=== PATIENT | male | born 1975 | race Hispanic/Latino ===

== ENCOUNTER 2017-12-20 13:53 | Emergency (ER) | payer SELFPAY | END 2017-12-20 14:38 | disposition home or self-care (01) | LOC: ERS 13:53 | DX: K04.7 Periapical abscess without sinus (principal); I10 Essential (primary) hypertension | CPT/HCPCS: 99282 ==

== ENCOUNTER 2018-03-24 08:02 | Observation (INO) | payer BC, SELFPAY ==
[2018-03-24] MEDS ORDERED: Nitroglycerin 2% Ointment 1 INCH/1 GM Packet ONE (08:28)
[2018-03-24] MEDS ORDERED: Nitroglycerin 0.4 MG TAB (25 Tab Bottle) ONE (08:28)
[2018-03-24 08:39] LABS: #Basophils 0.1 thou/uL (0.0-0.2); #Eosinphils 0.1 thou/uL (0.0-0.7); #Lymphocytes 3.7 thou/uL (1.20-3.40); #Monocytes 0.6 thou/uL (0.11-0.59); #Neutrophils 4.9 thou/uL (1.40-6.50); %Basophils 1.1 % (0.0-1.0); %Eosinophils 1.3 % (0.0-10.0); %Lymphocytes 38.9 % (21.0-51.0); %Monocytes 6.5 % (0.0-10.0); %Neutrophils 52.3 % (42.0-75.0); Hemoglobin 17.3 g/dL (14.0-18.0); Mean Corpuscular HGB CONC 35.5 g/dL (32.0-36.0); Mean Corpuscular Hemoglobin 33.2 pg (27.0-31.0); Mean Corpuscular Volume 93.4 fL (78.0-98.0); Mean Platelet Volume 8.9 fL (7.4-10.4); Platelet Count 197 thou/uL (130-400); RBC Distribution Width 11.9 % (11.5-14.5); Red Blood Cell (RBC) Count 5.21 mill/uL (4.70-6.10); White Blood Cell (WBC) Count 9.4 thou/uL (4.8-10.8)
--- NOTE | 2018-03-24 08:54 | RAD ---
SINGLE VIEW OF THE CHEST: History: Intermittent chest pain. Comparison: 12-30-06 FINDINGS: Single view of the chest shows a normal sized cardiomediastinal silhouette. There is no evidence of c onsolidation, mass, or pleural effusion. The bones are unremarkable. IMPRESSION: No evidence of acute cardiopulmonary disease. POS: [facility]
[2018-03-24 08:56] LABS: ALT (SGPT) 41 U/L (8-55); AST (SGOT) 26 U/L (5-34); Alkaline Phosphatase 93 U/L (40-150); Anion Gap 19 mmol/L (10-20); BUN (Urea Nitrogen) 17 mg/dL (8.9-20.6); Bilirubin, Total 0.8 mg/dL (0.2-1.2); Calc. Creatinine Clearance 0 mL/min (70-130); Calcium 10.2 mg/dL (7.8-10.44); Carbon Dioxide 20 mmol/L (22-29); Chloride 100 mmol/L (98-107); Estimated GFR-MDRD 58; Globulin 3.9 g/dL (2.4-3.5); Glucose 110 mg/dL (70-105); Protein, Total 8.9 g/dL (6.0-8.3); Sodium 136 mmol/L (136-145)
[2018-03-24 09:00] LABS: Potassium 2.9 mmol/L (3.5-5.1)
--- NOTE | 2018-03-24 11:54 | PDOC.FPRHP ---
- History of Present Illness Chief Complaint: chest pain History of Present Illness: Mr. Cooper presents to the ED with chest pain He reports that for the last two days he has had intermittent chest pain that he describes as sharp and localized in his left chest. He reports it is present at rest and not made worse with activity. he denies any RUELAS, palpitations, SOB, syncope, headache, or diaphoresis. He has not had similar chest pain in the past. He has no heart history, has been taking his medications as prescribed. 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 ED Course: CBC, CMP, Trop, trop, CXR, EKG nitro, asa - History PMHx: HTN PSHx: none FHx: DMII, CAD, HTN Social: social smoking and drinking, no drugs - Review of Systems General: denies: fever/chills, weight/appetite/sleep changes Eyes: denies: eye pain, vision changes Respiratory: denies: cough, shortness of breath, exercise intolerance Cardiovascular: reports: chest pain. denies: palpitation, edema, orthopnea Gastrointestinal: denies: nausea, vomiting, diarrhea Skin: denies: rashes, lesions Musculoskeletal: denies: pain, tenderness Neurological: denies: syncope, weakness - Vital signs BP: 130/96 HR: 76 RR: 16 Tmax: 99 Pox: 97% on RA Wt: 104.3kg - Physical Exam Constitutional: NAD, awake, alert and oriented HEENT: normocephalic and atraumatic, grossly normal vision, grossly normal hearing Neck: supple, trachea midline Chest: no-tender to palpation, no lesions Heart: RRR, normal S1/S2, no murmurs/rubs/gallops, pulses present, no edema Lungs: CTAB, no respiratory distress, good air movement Abdomen: soft, non-tender, bowel sounds present Musculoskeletal: normal structure, ROM grossly normal Neurological: no focal deficit Skin: no rash/lesions, good turgor Heme/Lymphatic: no unusual bruising or bleeding Psychiatric: normal mood and affect FMR H&P: Results - Labs Result Diagrams: 03/24/18 08:21 03/24/18 08:21 Lab results: WBC 9.4 thou/uL (4.8-10.8) 03/24/18 08:21 Hgb 17.3 g/dL (14.0-18.0) 03/24/18 08:21 Hct 48.6 % (42.0-52.0) 03/24/18 08:21 MCV 93.4 fL (78.0-98.0) 03/24/18 08:21 Plt Count 197 thou/uL (130-400) 03/24/18 08:21 Neutrophils % 52.3 % (42.0-75.0) 03/24/18 08:21 Sodium 136 mmol/L (136-145) 03/24/18 08:21 Potassium 2.9 mmol/L (3.5-5.1) L* 03/24/18 08:21 Chloride 100 mmol/L (98-107) 03/24/18 08:21 Carbon Dioxide 20 mmol/L (22-29) L 03/24/18 08:21 BUN 17 mg/dL (8.9-20.6) 03/24/18 08:21 Creatinine 1.35 mg/dL (0.7-1.3) H 03/24/18 08:21 Glucose 110 mg/dL (70-105) H 03/24/18 08:21 Calcium 10.2 mg/dL (7.8-10.44) 03/24/18 08:21 Total Bilirubin 0.8 mg/dL (0.2-1.2) 03/24/18 08:21 AST 26 U/L (5-34) 03/24/18 08:21 ALT 41 U/L (8-55) 03/24/18 08:21 Alkaline Phosphatase 93 U/L (40-150) 03/24/18 08:21 Serum Total Protein 8.9 g/dL (6.0-8.3) H 03/24/18 08:21 Albumin 5.0 g/dL (3.5-5.0) 03/24/18 08:21 FMR H&P: A/P - Problem List (1) Atypical chest pain Status: Acute Code(s): R07.89 - OTHER CHEST PAIN (2) Hypokalemia Status: Acute Code(s): E87.6 - HYPOKALEMIA (3) HTN (hypertension) Status: Acute Code(s): I10 - ESSENTIAL (PRIMARY) HYPERTENSION - Plan Atypical chest pain - concerning for resolution with nitro, other risk factors for CAD - normal EKG, trend tropx3 - exercise stress with nm imaging - nitro, morphine, ekg for repeat chest pain HTN - continue home medication - high in ED, hydralazine prn Hypokalemia - K 2.9 on admission - supplement, recheck tobacco abuse - encourage cessation Code: full ppx: lovenox Disposition/LOS: admit to tele obs, stress test. DC with negative results FMR H&P: Upper Level - Pertinent history 42 yo HM with PMHx HTN who presents to ED with cc of chest pain that started this morning. He describes it as sharp and in the middle of his chest. Not associated with activity, SOB, cough or LE swelling. Denies n/v/abdominal pain. - Pertinent findings Labs and imaging reviewed VSS, mildly hypertensive Gen: awake, alert, oriented HEENT: atraumatic, normocephalic CV: RRR, no murmur RESP: CTAB ABD: soft, nontender EXT: no edema - Plan Date/Time: 03/24/18 1152 42 yo M with PMHx HTN here with atypical chest pain 1. Atypical chest pain - Trend trops - EKG WNL - CXR negative - FLP, TSH - Stress tomorrow 2. Hypokalemia - Replete and recheck Please see Dr. Guthrie's note for details of remainder of management. I, Cristina Morton MD, PGY-3, have evaluated this patient and agree with findings/ plan as outlined by rn internal medicine resident. Pertinent changes/additions are listed here. Addendum - Attending - Attending Attestation Date/Time: 03/24/18 1107 I personally evaluated the patient and discussed the management with Dr. Guthrie. I agree with the History, Examination, Assessment and Plan documented above with any addition or exceptions noted below. The patient presents with chest pain and possible shortness of breath that was noticed by coworkers. He denies history of heart disease. He takes 1 medication for hypertension. Cardiac enzymes will be trended and stress test ordered. He is a smoker. If stress is negative, will d/c home.
[2018-03-24 12:16] VITALS: TEMP 98.9
[2018-03-24] MEDS ORDERED: Acetaminophen 325 MG TAB PO PRN (12:31)
[2018-03-24] MEDS ORDERED: Nitroglycerin 0.4 MG TAB (25 Tab Bottle) PO PRN (12:31)
[2018-03-24] MEDS ORDERED: hydrALAZINE 20 MG/ML VIAL SLOW IVP PRN (12:31)
[2018-03-24] MEDS ORDERED: Potassium Chloride 20 MEQ TAB PO SCH ×2 (12:45→17:00)
[2018-03-24 13:12] LABS: Cardiac Risk 5.7 (Less than 4.5)
--- NOTE | 2018-03-24 16:08 | PDOC.EVN ---
Event Note - Event Note Event Note: Patient refused NM stress test States "I want to go home, I cannot miss anymore work, I have bills to pay" Understands risks, discussed current lab results and reasoning for stress test Patient states he understands risks including IA Patient states he will f/u with PCP for HTN and Cardiology for outpt stress test.
[2018-03-24] MEDS ORDERED: Potassium Chloride 20 MEQ TAB ONE (16:38)
[2018-03-25] MEDS ORDERED: Enoxaparin Sodium 40 MG/0.4 ML SYRINGE SC SCH (09:00)
--- NOTE | 2018-03-26 05:28 | DIS ---
DATE OF ADMISSION: 03/24/2018 DATE OF DISCHARGE: 03/24/2018 RESIDENT: Dr. Alex Guthrie. ADMITTING ATTENDING: Marilyn Obrien MD DISCHARGE ATTENDING: Marilyn Obrien MD CONSULTS: None. PROCEDURES: None. IMAGING: Chest x-ray, impression; no evidence of acute cardiopulmonary disease. EKG, normal sinus rhythm. No ST elevations. PRIMARY DIAGNOSIS: Musculoskeletal chest pain. SECONDARY DIAGNOSES: 1. Hypertension. 2. Hypokalemia. DISCHARGE MEDICATIONS: 1. Aspirin 325 daily. 2. Atorvastatin 40 mg p.o. daily. 3. Chlorthalidone 50 mg p.o. daily. 4. Potassium chloride 20 mEq p.o. b.i.d. for 14 days. Discontinued medications, none. HISTORY OF PRESENT ILLNESS AND HOSPITAL COURSE: Mr. Cooper presents to the ED with chest pain. He reports for the last 2 days, he has had intermittent chest pain that he describes as sharp and localize to the left side. He reports that it is present at rest and not made worse with activity. He denies dyspnea on exertion, palpitations, weight loss, syncope, headache, or diaphoresis. He has not had similar chest pain in the past no cardiac history and has been taking his medications as prescribed. He got CBC, CMP, troponin, chest x-ray and EKG and all were within normal range. Troponin was negative x2. It was recommended for the patient to be admitted to the hospital. The patient did not want to go for a stress test, which was advised for him. He said he could not miss work and desired to be discharged at that time. He agreed to close outpatient followup at the [facility] with a script for discharge medication and instructed to follow up for stress test at that time even though this is against physician recommendation, it was deemed acceptable as likelihood of cardiac-related chest pain was very low in suspicion. DISCHARGE INSTRUCTIONS: 1. Location: Home. 2. Diet: Heart healthy. 3. Activity: As tolerated. 4. Followup: Follow up with [facility] in the next 2 to 3 days with stress test ordered at that time. Job ID: [id number] MTDD
--- NOTE | 2018-03-26 14:23 | EKG ---
Test Reason : Blood Pressure : / mmHG Vent. Rate : 090 BPM Atrial Rate : 090 BPM P-R Int : 142 ms QRS Dur : 100 ms QT Int : 382 ms P-R-T Axes : 066 -05 025 degrees QTc Int : 467 ms Normal sinus rhythm Normal ECG Confirmed by MONICA SAWYER, JENNIFER Grande ([id number]), content editor SANJUANITA AL ([id number]) on 03/26/2018 2:22:41 PM Referred By: Confirmed By:JENNIFER ANDERSON MD
== END 2018-03-24 16:37 | disposition home or self-care (01) ==
LOC: ERS 08:02 → ERHOLD 09:46
PROVIDERS: ADMIT Family Medicine; ATTEND Family Medicine
DX: R07.89 Other chest pain (principal); I10 Essential (primary) hypertension; E87.6 Hypokalemia; F17.200 Nicotine dependence, unspecified, uncomplicated; Z79.899 Other long term (current) drug therapy
CPT/HCPCS: 36415; 71045; 80053; 80061; 84484; 85025; 93005; G0378